=== PATIENT | female | born 1955 | race Caucasian/White ===

== ENCOUNTER 2020-12-25 18:28 | Emergency (ER) | payer MEDICARE, SELFPAY ==
--- NOTE | ~2020-12-25 | XR_ITS ---
EXAMINATION: XR HIP, RIGHT CLINICAL INFORMATION: Right hip pain after fall COMPARISON: None TECHNIQUE: Single view pelvis with 2 additional views of the right hip. FINDINGS: Some minimal degenerative changes present in the right hip joint with some supra-acetabular sclerosis and some osteophytes. No fractures are seen. There is a slightly irregular rounded area of sclerosis in the iliac bone just beneath the femoral head, most likely bone island. Degenerative changes are seen in the visualized portions of the lower lumbosacral spine. XR/XR hip RT w PEL1V IMPRESSION: No hip fracture seen
[2020-12-25 19:21] VITALS: BP 140/68; PULSE 83; RESP 18; TEMP 36.7; O2SAT 96; BMI 25.7
[2020-12-25 21:38] VITALS: BP 135/65; PULSE 78; RESP 16; TEMP 37.3; O2SAT 99
[2020-12-25 21:54] LABS: MANUAL DIFF FLAG NO
[2020-12-25 21:55] LABS: Basophils Percent Auto 0.3 % (0-2); Eosinophils Absolute Auto 0.2 X10*3/uL (0.0-0.4); Eosinophils Percent Auto 3.5 % (0-4); Hematocrit 35.2 % (37-47); Hemoglobin 11.5 g/dl (12.0-16.0); Imm Gran Abs Auto 0.01 X10*3/uL (0.00-0.03); Imm Gran Pct Auto 0.2 % (0.0-0.4); Lymphocytes Absolute Auto 1.4 X10*3/uL (1.2-4.9); Lymphocytes Percent Auto 21.9 % (20-40); Mean Corpuscular HGB Conc 32.7 g/dl (31.0-35.0); Mean Corpuscular Hemoglobin 30.2 pg (27.0-33.0); Mean Corpuscular Volume 92.4 fL (80-98); Mean Platelet Volume 12.1 fL (9.4-12.3); Monocytes Absolute Auto 0.6 X10*3/uL (0.1-1.2); Monocytes Percent Auto 9.2 % (2-11); Neutrophils Absolute Auto 4.3 X10*3/uL (2.0-8.3); Neutrophils Percent Auto 64.9 % (45-73); Platelet Count 180 X10*3/uL (160-400); Red Blood Count 3.81 X10*6/uL (4.20-5.50); Red Cell Distribution Width 15.7 % (11.0-16.0); White Blood Count 6.5 X10*3/uL (4.8-10.8)
[2020-12-25 22:00] LABS: INTERNATIONAL NORM RATIO 2.3 (0.9-1.1); Prothrombin Time 28.1 SEC (10.8-13.0)
[2020-12-25 22:03] LABS: Partial Thromboplastin Time 49.8 SEC (24.1-38.0)
[2020-12-25 22:14] LABS: Glucose Urine UA NEG (NEG); Leukocyte Esterase Urine TRACE (NEG); Nitrite Urine NEG (NEG); PH 5.5 (5.0-8.0); Specific Gravity - Urine 1.015 (1.005-1.025); UACC Culture Trigger YES; Urine Blood TRACE (NEG); Urine Ketones NEG (NEG); Urine Protein NEG (NEG-TRACE)
[2020-12-25 22:15] LABS: Appearance Urine CLEAR; Color Urine YELLOW
[2020-12-25 22:24] LABS: Anion Gap 16 (12-20); Blood Urea Nitrogen 48 mg/dL (9-16); Calcium 9.1 mg/dL (8.4-10.2); Carbon Dioxide 24 mmol/L (22-29); Chloride 103 mmol/L (96-108); Creatinine Clr Calc Pharmacy 54.5; Estimated Glomerular Filt Rate 59; Glucose Random 86 mg/dL (60-115); Potassium 4.1 mmol/L (3.3-5.1); Sodium 139 mmol/L (135-145)
[2020-12-25 22:27] LABS: Hyaline Casts Urine 0-2 /LPF; Mucus Urine TRACE /LPF; RBC Urine 0-2 /HPF (0); Squamous Epithelial Cell Urine TRACE /LPF
--- NOTE | 2020-12-26 00:20 | ED.FALL ---
HPI - Fall General Chief Complaint: Fall Stated Complaint: fall Time Seen by Provider: 12/26/20 00:19 Source: patient Mode of arrival: ambulatory Limitations: no limitations History of Present Illness HPI Narrative: Patient with hx of MS lost balance 2 days ago and fell landed on her right hip patient is on Coumadin no head injury no loss of consciousness patient been behaving normal the fall noticed small lump on the right lateral aspect of the hip ambulatory without any discomfort called her PCP was good to go to the ER for checkup MD complaint: fall Onset (ago): day(s) (2) Fall from: standing Fall witnessed: no Place fall occurred: home Loss of consciousness: none Location of injury - extremities: right: thigh Related Data Allergies Allergy/AdvReac Type Severity Reaction Status Date / Time No Known Allergies Allergy Verified 12/25/20 19:26 Review of Systems Review of Systems: Constitutional : No Weight loss, No Fever, No Chills ENT/Mouth : No sore throat, No Rhinorrhea Eyes: No Eye Pain, No Swelling Cardiovascular : No Chest Pain, no palpitations Respiratory : No Cough, No Sputum, no shortness of breath Gastrointestinal : no Nausea, No Vomiting, No Diarrhea, No abdominal Pain, no black stools Genitourinary : No Dysuria, No Urinary Frequency Musculoskeletal : No joint pain, No Myalgias, No Joint Swelling Skin : No Skin Lesions, No rash Neuro : No Weakness, No Numbness, No Dizziness, No Headache Psych : No Anxiety/Panic, No Depression Heme/Lymph: No Bruising, No Lymphadenopathy Endocrine : No Polyuria, No Polydipsia All other systems reviewed and are negative [facility] Past Medical History Medical History (Updated 12/26/20 @ 00:37 by Alexander Chen MD) HTN (hypertension) Multiple sclerosis Surgical History H/O heart surgery Social History Social History Advance Directives: No Physical Exam Vital Signs: Vital Signs: Last Vital Signs Temp 99.2 F 12/25/20 21:38 Pulse 78 12/25/20 21:38 Resp 16 12/25/20 21:38 BP 135/65 12/25/20 21:38 Pulse Ox 99 12/25/20 21:38 Body Mass Index 25.7 Const: General: comfortable, no acute distress and well developed Orientation/consciousness: patient oriented x3 HENMT: Head: Yes normocephalic and Yes atraumatic Ears: hearing grossly normal bilaterally General nose exam: Normal external nose present Eyes: General: appearance normal, both eyes and all related structures Neck: Neck: Yes normal visual inspection, Yes full ROM and No midline deformity Chest: Chest palpation & inspection: normal inspection of the chest Resp: Effort & Inspection: normal respiratory effort Auscultation: clear to auscultation bilaterally Cardio: Jugular venous distension: no JVD Rate: regular rate Rhythm: regular rhythm Heart sounds: S1 normal heart sound present and S2 normal heart sound present GI: Inspection: Yes normal to inspection Palpation (GI): Soft to palpation Auscultation: normal bowel sounds : General: Yes no CVA tenderness Back/Spine/Pelvis: Back: no CVA tenderness Cervical Spine: normal cervical lordosis Thoracic/Lumbar Spine: thoracic and lumbar spine normal to inspection Skin: Other: Small hematoma right lateral aspect of thigh Neuro: General: patient oriented x3 and no focal motor deficits Extrem: Upper/lower leg/hip images: 1. 4 x 4 cm hematoma right lateral aspect of the thigh without any bony tenderness MDM - Fall MDM Narrative Medical decision making narrative: Patient status post mechanical fall on Coumadin without any head injury no loss of consciousness patient been behaving normal for last 48 hours clinically patient has him small hematoma on the right lateral aspect of the hip x-ray of the hip is negative for any fracture patient been ambulatory normal in the ER will discharge patient home Lab Data Attestation: I reviewed the patient's lab results. Result diagrams: 12/25/20 21:45 12/25/20 21:45 Labs: Lab Results 12/25/20 12/25/20 12/25/20 Range/Units 21:45 21:45 21:45 WBC 6.5 (4.8-10.8) X10*3/uL RBC 3.81 L (4.20-5.50) X10*6/uL Hgb 11.5 L (12.0-16.0) g/dl Hct 35.2 L (37-47) % MCV 92.4 (80-98) fL MCH 30.2 (27.0-33.0) pg MCHC 32.7 (31.0-35.0) g/dl RDW 15.7 (11.0-16.0) % Plt Count 180 (160-400) X10*3/uL MPV 12.1 (9.4-12.3) fL Immature Gran % (Auto) 0.2 (0.0-0.4) % Neut % (Auto) 64.9 (45-73) % Lymph % (Auto) 21.9 (20-40) % [place] % (Auto) 9.2 (2-11) % Eos % (Auto) 3.5 (0-4) % Baso % (Auto) 0.3 (0-2) % Lymph # (Auto) 1.4 (1.2-4.9) X10*3/uL [place] # (Auto) 0.6 (0.1-1.2) X10*3/uL Eos # (Auto) 0.2 (0.0-0.4) X10*3/uL Baso # (Auto) 0.0 (0.0-0.2) X10*3/uL Abs Immat Gran (auto) 0.01 (0.00-0.03) X10*3/uL Absolute Neuts (auto) 4.3 (2.0-8.3) X10*3/uL Absolute Nucleated RBC 0.000 (0.0-0.012) X10*3/uL Nucleated RBC % (auto) 0.0 (0.0-0.2) /100WBC PT 28.1 H (10.8-13.0) SEC INR 2.3 H (0.9-1.1) APTT 49.8 H (24.1-38.0) SEC Sodium 139 (135-145) mmol/L Potassium 4.1 (3.3-5.1) mmol/L Chloride 103 (96-108) mmol/L Carbon Dioxide 24 (22-29) mmol/L Anion Gap 16 (12-20) BUN 48 H (9-16) mg/dL Creatinine 0.95 (0.5-1.4) mg/dL Estim Creat Clear Calc 54.5 Estimated GFR 59 Random Glucose 86 (60-115) mg/dL Calcium 9.1 (8.4-10.2) mg/dL Urine Color Urine Appearance Urine pH (5.0-8.0) Ur Specific [employer] [place] (1.005-1.025) Urine Protein (NEG-TRACE) MG/DL Urine Glucose (UA) (NEG) MG/DL Urine Ketones (NEG) MG/DL Urine Blood (NEG) Urine Nitrite (NEG) Ur Leukocyte Esterase (NEG) Urine RBC (0) /HPF Urine WBC (0-4) /HPF Ur Squamous Epith Cells /LPF Urine Bacteria /LPF Hyaline Casts /LPF Urine Mucus /LPF 12/25/20 Range/Units 21:53 WBC (4.8-10.8) X10*3/uL RBC (4.20-5.50) X10*6/uL Hgb (12.0-16.0) g/dl Hct (37-47) % MCV (80-98) fL MCH (27.0-33.0) pg MCHC (31.0-35.0) g/dl RDW (11.0-16.0) % Plt Count (160-400) X10*3/uL MPV (9.4-12.3) fL Immature Gran % (Auto) (0.0-0.4) % Neut % (Auto) (45-73) % Lymph % (Auto) (20-40) % [place] % (Auto) (2-11) % Eos % (Auto) (0-4) % Baso % (Auto) (0-2) % Lymph # (Auto) (1.2-4.9) X10*3/uL [place] # (Auto) (0.1-1.2) X10*3/uL Eos # (Auto) (0.0-0.4) X10*3/uL Baso # (Auto) (0.0-0.2) X10*3/uL Abs Immat Gran (auto) (0.00-0.03) X10*3/uL Absolute Neuts (auto) (2.0-8.3) X10*3/uL Absolute Nucleated RBC (0.0-0.012) X10*3/uL Nucleated RBC % (auto) (0.0-0.2) /100WBC PT (10.8-13.0) SEC INR (0.9-1.1) APTT (24.1-38.0) SEC Sodium (135-145) mmol/L Potassium (3.3-5.1) mmol/L Chloride (96-108) mmol/L Carbon Dioxide (22-29) mmol/L Anion Gap (12-20) BUN (9-16) mg/dL Creatinine (0.5-1.4) mg/dL Estim Creat Clear Calc Estimated GFR Random Glucose (60-115) mg/dL Calcium (8.4-10.2) mg/dL Urine Color YELLOW Urine Appearance CLEAR Urine pH 5.5 (5.0-8.0) Ur Specific [employer] [place] 1.015 (1.005-1.025) Urine Protein NEG (NEG-TRACE) MG/DL Urine Glucose (UA) NEG (NEG) MG/DL Urine Ketones NEG (NEG) MG/DL Urine Blood TRACE (NEG) Urine Nitrite NEG (NEG) Ur Leukocyte Esterase TRACE H (NEG) Urine RBC 0-2 (0) /HPF Urine WBC 1-4 (0-4) /HPF Ur Squamous Epith Cells TRACE /LPF Urine Bacteria NONE /LPF Hyaline Casts 0-2 /LPF Urine Mucus TRACE /LPF Discharge Plan Discharge Clinical Impression: Contusion of hip, right Qualifiers: Encounter type: initial encounter Qualified Code(s): S70.01XA - Contusion of right hip, initial encounter Patient Disposition: Home, Self-Care Instructions: Hip Contusion (ED) Additional Instructions: Apply ice, Tylenol for pain follow with PCP if any concern Interventions: ED Discharge Assessment Last Done: 12/26/20 00:42 Discharge Date/Time: 12/26/20 00:43
== END 2020-12-26 00:43 | disposition home or self-care (01) ==
PROVIDERS: Emergency Provider Internal Medicine; PCP Nurse Practitioner Adult Health
DX: S70.01XA Contusion of right hip, initial encounter (principal); W18.30XA Fall on same level, unspecified, initial encounter; I10 Essential (primary) hypertension; G35 Multiple sclerosis; Y93.9 Activity, unspecified; Y92.019 Unspecified place in single-family (private) house as the place of occurrence of the external cause; Y99.9 Unspecified external cause status
CPT/HCPCS: 36415; 73502; 80048; 81001; 81003; 85025; 85610; 85730; 87086; 99283

== ENCOUNTER 2025-06-02 06:43 | Observation (INO) | payer MEDICARE, SELFPAY ==
[2025-06-02] VITALS (9 sets, daily range): BP systolic 134–162; BP diastolic 63–88; PULSE 78–105; RESP 16–21; TEMP 36.1–36.9; O2SAT 95–98; BMI 39.0; BMI 37.7
--- NOTE | ~2025-06-02 | CT_ITS ---
EXAMINATION: CT CHEST WITH CONTRAST CLINICAL INFORMATION: Further evaluation of pleural effusions, dyspnea. COMPARISON: Chest radiograph dated same day. No prior CT. TECHNIQUE: Multidetector volumetric CT imaging of the chest was obtained after the administration of 50 mL of Omnipaque 350 intravenous contrast without immediate adverse reactions. Axial MIP volume rendering provided. Sagittal and coronal reformatted images were obtained. This CT examination was performed using dose optimization techniques as appropriate, variously including the following: *Automated exposure control *Adjustment of mA and/or kV according to patient size (this includes techniques or standardized protocols for targeted exams where dose is matched to indication/reason for exam; i.e. extremities or head) *Use of iterative reconstruction technique FINDINGS: LUNGS: Markedly elevated right hemidiaphragm, to the level of the right hilum. Associated chronic right basilar atelectasis. There are no pleural effusions present. There is no pneumothorax. Minor atelectasis in the left base. Lungs otherwise clear and free of consolidations or abnormal groundglass opacities. No suspicious nodules. Small airways appear normal without significant thickening. The trachea has a somewhat narrowed appearance, as do the mainstem bronchi, raising the possibility of tracheobronchomalacia. MEDIASTINUM: Normal thyroid. There has been prior median sternotomy and CABG. Aortic valve replacement. Aorta is moderately calcified but normal in caliber without aneurysm. The main pulmonary artery is prominent suggesting elevated pulmonary pressures. Diameter measures 3.2 cm. There is mild cardiac enlargement with four-chamber enlargement. There is calcification of the mitral annulus. No pericardial effusion. There are heavy coronary calcifications present. There is no mediastinal adenopathy or mass. Great vessels are tortuous, and moderately calcified but grossly patent. AXILLA/CHEST WALL: No abnormal lymphadenopathy or mass. UPPER ABDOMEN: There is diffuse fatty infiltration of the liver. There is no focal hepatic lesion. Mild scarring of both kidneys noted. Density within the dependent gallbladder likely small stones. Remainder of the upper abdominal contents appear normal. OSSEOUS STRUCTURES: No suspicious lytic or blastic bone lesions. Chronic compression deformity of T12. Median sternotomy. Moderate degenerative spinal changes. CT/CT chest w IV con IMPRESSION: 1. Marked elevation of the right hemidiaphragm with chronic appearing atelectasis of the right lung base. 2. There are no pleural effusions. The lungs are otherwise grossly clear. There is no overt failure or pulmonary edema present. 3. Cardiomegaly with aortic valve replacement. Probable prior CABG as well. Heavy coronary artery calcifications. 4. The trachea has a somewhat narrowed appearance, as do the mainstem bronchi, raising the possibility of tracheobronchomalacia. 5. Suspect cholelithiasis. 6. Diffuse fatty infiltration of the liver. 7. Chronic compression deformity of T12. Electronically signed by: Alban Teran MD 06/02/2025 09:26 AM EDT
--- NOTE | ~2025-06-02 | XR_ITS ---
EXAMINATION: XR CHEST CLINICAL INFORMATION: sob COMPARISON: None available. TECHNIQUE: 2 views of the chest were obtained. FINDINGS: There is a horizontally oriented opacity mid to lower right hemithorax. Blunting of the left posterior angle. No pneumothorax. Vertically oriented linear opacity right hemithorax, likely skinfold. Positive silhouette sign in the inferior right cardiomediastinal silhouette. Cardiomediastinal silhouette size is prominent. Sternal wires. Mild prominence of the interstitial lung markings. Kyphotic deformity at the thoracolumbar junction with a 50% wedge-shaped compression deformity at T12/L1. Multilevel marginal osteophyte formation and endplate sclerosis involving mostly the upper lumbar spine and lower thoracic spine. Osteopenia versus osteoporosis. XR/XR chest 2V IMPRESSION: Concerning pulmonary edema and bilateral, right greater than left pleural effusions. Concerning airspace disease, right middle lung lobe with possible atelectatic component. Recommend CT chest. Subacute to old compression fracture deformity at T12/L1 vertebra. Electronically signed by: Huy Mora MD 06/02/2025 08:26 AM EDT
--- NOTE | 2025-06-02 07:11 | ECG_ITS ---
Test Reason : dyspnea Blood Pressure : */* mmHG Vent. Rate : 76 BPM Atrial Rate : 76 BPM P-R Int : 142 ms QRS Dur : 92 ms QT Int : 392 ms P-R-T Axes : 49 -16 33 degrees QTcB Int : 441 ms Normal sinus rhythm Moderate voltage criteria for LVH, may be normal variant ( R in aVL , Howes product ) Nonspecific ST abnormality Abnormal ECG No previous ECGs available Referred By: Generic ED Physician Electronically Signed By: SAGAR WORKMAN MD
--- OUTSIDE RECORDS SUMMARY | 2025-06-02 07:35 | XMS_ITS | Encounter Summary ---
Author Organization [facility] Address [address] [place] [address] Phone Care Team Providers Care Poultry Hatchery Manager Name Role Phone Daniel Fuentes MD Primary Care Provider [phone] Encounter Details Date Type Department Care Team (Latest Contact Info) Description 09/11/2021 Ancillary Orders [facility] [address] [place] [address] [address], [address] [place] [address] Aminta Gordon MD [phone] [place] [address] [email or web address] Atrial fibrillation, unspecified type Social History Tobacco Use Types Packs/Day Years Used Date Smoking Tobacco: Never Assessed Comments Unknown Sex and Gender Information Value Date Recorded Sex Assigned at Not on file Legal Sex Female 3:33 PM EDT Gender Identity Not on file Sexual Orientation Not on file documented as of this encounter Plan of Treatment Scheduled Orders Name Type Priority Associated Diagnoses Orde r Schedule MCT (Mobile Cardiac Telemetry) Cardiac Monitors Routine Atrial fibrillation, unspecified type Expected: 09/30/2021, Expires: 02/28/2022 documented as of this encounter Visit Diagnoses Diagnosis Atrial fibrillation, unspecified type documented in this encounter Care Teams Poultry Hatchery Manager Relationship Specialty Start Date End Date Daniel Fuentes MD [address] [place] [address] PCP - General Internal Medicine 08/30/21 documented as of this encounter Additional Source Comments The information contained in this document represents components of the legal health record. It is not the complete legal health record.[facility]
--- OUTSIDE RECORDS SUMMARY | 2025-06-02 07:35 | XMS_ITS | Clinical Summary ---
Author Organization [facility] Address [address] [place] [address] Care Team Providers Care Chief Drafter Name Role Phone Iris Wharton NP Primary Care Provider [phone] Medical History Medical History Date Comments Multiple sclerosis (CMS/HCC V24, CMS/HCC V28) DX:Multiple sclerosis (HCC) Heart murmur 07/29/2022 DX:Heart murmur Social History Tobacco Use Types Packs/Day Years Used Date Smoking Tobacco: Former Smokeless Tobacco: Never Comments Unknown Sex and Gender Information Value Date Recorded Sex Assigned at Not on file Legal Sex Female 5:15 AM EST Gender Identity Not on file Sexual Orientation Not on file Obstetrics History Last Filed Vital Signs Vital Sign Reading Time Taken Comments Blood Pressure 158/80 11/11/2023 10:41 AM EST Pulse 92 11/11/2023 10:41 AM EST Temperature - - Respiratory Rate - - Oxygen Saturation - - Inhaled Oxygen Concentration - - Weight 86.6 kg (191 lb) 11/11/2023 10:36 AM EST Height 162.6 cm (5' 4 ) 11/11/2023 10:36 AM EST Body Mass Index 32.79 11/11/2023 10:36 AM EST Plan of Treatment Health Maintenance Due Date Last Done Comments Breast Cancer Screening 1955 Diabetes: Annual GFR (Glomer ular Filtration Rate) 1955 Diabetes: Annual Foot Exam 01/15/1966 Diabetes: Annual Retina Eye Exam 01/15/1966 DTaP,Tdap,and Td Vaccines (1 - Tdap) 01/15/1975 Pneumococcal Vaccine: 50+ Ye ars (1 of 1 - PCV) 01/15/2006 Zoster Vaccines (1 of 2) 01/15/2006 RSV Immunization Adult Patie nts (1 - Risk 60-74 years 1-dose series) 2016 Cholesterol Screening (Lipid Panel) 10/13/2022 Colorectal Cancer Screening: Colonoscopy 10/13/2022 Falls Risk Assessment 10/13/2022 Hepatitis C Screening 10/13/2022 Osteoporosis Screening (Bone Density Screening) 10/13/2022 Social Influencers of Health Screening 10/13/2022 Diabetes: Annual Urine Albumin-Creatinine Ratio (uACR) 11/01/2022 Diabetes: Blood Sugar Contro l Test (HGBA1C) 11/01/2022 Hypertension/CHF/CAD Annual BMP Blood Test 11/01/2022 COVID-19 Vaccine (2023-2 5 season) 2024 Depression Screening 11/03/2024 Influenza Vaccine (#1) 2025 HIB Vaccines Aged Out No longer eligi ble based on patient's age to complete this topic HPV Vaccines Aged Out No longer eligi ble based on patient's age to complete this topic Hepatitis A Vaccines Aged Out No long er eligible based on patient's age to complete this topic Hepatitis B Vaccines Aged Out No long er eligible based on patient's age to complete this topic IPV Vaccines Aged Out No longer eligi ble based on patient's age to complete this topic MMR Vaccines Aged Out No longer eligi ble based on patient's age to complete this topic Meningococcal ACWY Vaccine Aged Out N o longer eligible based on patient's age to complete this topic Meningococcal B Vaccine Aged Out No l onger eligible based on patient's age to complete this topic RSV Immunization Patients Un lisy 20 months Aged Out No longer eligible b ased on patient's age to complete this topic Varicella Vaccines Aged Out No longer eligible based on patient's age to complete this topic Care Teams Chief Drafter Relationship Specialty Start Date End Date Iris Wharton, ARMHOLE PRESSER [address] [place] [address] VIVEK Collins PCP - General 04/22/22
--- OUTSIDE RECORDS SUMMARY | 2025-06-02 07:35 | XMS_ITS | Clinical Summary ---
Author Organization [facility] Address [address] [place] [address] Care Team Providers Care Pocket Setter Name Role Phone Daniel Fuentes MD Primary Care Provider [phone] Allergies No known active allergies Medications Medication Sig Dispensed Refills Start Date End Date Status furosemide (LASIX) 20 MG tablet TAKE ONE TABLET BY MOUTH EVERY DAY 0 01/20/2020 Active lisinopril (PRINIVIL,ZESTRIL) tablet 5 mg Take 5 mg by mouth daily. 0 01/26/2020 Active metFORMIN (GLUCOPHAGE-XR) ER 24 hr tablet 500 mg TAKE 1 TABLET WITH EVENING MEAL ONCE DAILY 0 01/28/2020 Active ferrous sulfate 325 (65 FE) MG tablet Take 325 mg by mouth every morning with breakfast. 0 Active Active Problems Problem Noted Date Diagnosed Date DM (diabetes mellitus) 04/11/2020 CHF (congestive heart failure) 04/11/2020 Family History Medical History Relation Name Comments Hypertension Father Hypertension Mother Relation Name Status Comments Father Mother Social History Tobacco Use Types Packs/Day Years Used Date Smoking Tobacco: Former Smokeless Tobacco: Never Alcohol Use Standard Drinks/Week Comments Yes 0 (1 standard drink = 0.6 oz pur e alcohol) Sex and Gender Information Value Date Recorded Sex Assigned at Not on file Gender Identity Not on file Sexual Orientation Not on file Job Start Date Occupation Industry Not on file Not on file Not on file Plan of Treatment Health Maintenance Due Date Last Done Comments Hepatitis C Screening 1955 COVID-19 Vaccine (#1) 1955 Pneumococcal Vaccine (1 of 2 - PCV) 01/15/1962 Depression Screening 1968 Preventative Health Evaluation 01/15/1974 DTap / Tdap / Td (1 - Tdap) 01/15/1975 Colon Cancer Screening (Colonoscopy) 01/15/2001 Breast Cancer Screening (Mammogram) 01/15/2006 Shingrix-Zoster Vaccine (1 of 2) 01/15/2006 Fall Risk Assessment 01/15/2021 Osteoporosis Screening (DEXA Scan) 01/15/2021 Influenza Vaccine (#1) 2025 RSV Adult > 60+ Yrs or Pregn ant (1 - 1-dose 75+ series) 01/15/2031 Hepatitis B Vaccines Aged Out No long er eligible based on patient's age to complete this topic RSV Ped < 20 months Aged Out No longe r eligible based on patient's age to complete this topic Care Teams Pocket Setter Relationship Specialty Start Date End Date Daniel Fuentes MD PCP - General Internal Medicine 04/11/20
[2025-06-02 08:02] LABS: MANUAL DIFF FLAG NO
[2025-06-02 08:03] LABS: Hematocrit 38.0 % (37.0-47.0); Hemoglobin 12.8 g/dl (12.0-16.0); Imm Gran Abs Auto 0.04 X10*3/uL (0.00-0.03); Imm Gran Pct Auto 0.5 % (0.0-0.4); Lymphocytes Absolute Auto 0.8 X10*3/uL (1.2-4.9); Mean Corpuscular HGB Conc 33.7 g/dl (31.0-35.0); Mean Corpuscular Hemoglobin 32.0 pg (27.0-33.0); Mean Corpuscular Volume 95.0 fL (80.0-98.0); NRBC Abs Auto 0.000 X10*3/uL (0.0-0.012); NRBC Pct Auto 0.0 /100WBC (0.0-0.2); Platelet Count 190 X10*3/uL (160-400); Red Blood Count 4.00 X10*6/uL (4.20-5.50); White Blood Count 8.0 X10*3/uL (4.8-10.8)
[2025-06-02 08:04] LABS: Venous Blood Gas Refer to POC result
[2025-06-02 08:05] LABS: VBG HCO3 25 mmol/L (22-26); VBG O2 % Saturation 74.0 %
--- NOTE | 2025-06-02 08:14 | ED_ITS ---
HPI - General Adult General Chief complaint: Dyspnea Stated complaint: on set SOB Time Seen by Provider: 06/02/25 08:10 Source: patient, family (patient's son) and EMS Mode of arrival: EMS Limitations: no limitations History of Present Illness ED Provider: Marixa Justice PA-C HPI narrative: Patient is a 70 year old assigned female at with a history of asthma, CABG, CAD, peripheral neuropathy, GERD, HTN, HLD, aortic valve replacement (on warfarin), SHALONDA, DM, and CHF presenting to the emergency department today with shortness of breath. Patient states that since 0 this morning she has had shortness of breath. Patient states that she is having worsening shortness of breath no matter what position or exertion she is doing. Patient denies any dizziness, lightheadedness, abdominal pain, nausea, vomiting, fever, chills, blurry vision, double vision, loss of vision, chest pain, back pain, night sweats, pain with urination, increased urinary frequency, increased urinary urgency, blood in her urine or stool, syncope or a near syncopal episode, recent trauma or falls, bowel incontinence, bladder incontinence, or any other complaints at this time. Relieving factors: none Exacerbating factors: none Associated symptoms: shortness of breath Treatments prior to arrival: none Related Data Home Medications ?Medication ?Instructions ?Recorded ?Confirmed amlodipine 5 mg tablet 5 mg PO DAILY 06/02/2506/02 aspirin 81 mg tablet,delayed 81 mg PO DAILY 06/02/25 0 06/02/25 release furosemide 20 mg tablet 20 mg PO DAILY 06/02/2505/05 lisinopril 10 mg tablet 10 mg PO DAILY 06/02/2505/05 warfarin 2 mg tablet (Jantoven) 4.5 mg PO MO@1800 05/0506/02/25 warfarin 4 mg tablet (Jantoven) 4 mg PO SUTUWETHFRSA@1 800 06/02/25 06/02/25 Allergies Allergy/AdvReac Type Severity Reaction Status Date / Time No Known Allergies Allergy Verified 06/02/25 07:07 Review of Systems 2 Constitutional: Constitutional: Reports no additional constitutional complaints, Denies chills, Denies fever(s) and Denies night sweats Eyes: Eyes: Reports no additional eye complaints, Denies blurry vision, Denies change in vision, Denies diplopia, Denies eye discharge, Denies loss of vision and Denies eye pain ENT: Denies dizziness Cardiovascular: Cardiovascular: Reports no additional cardiovascular complaints, Denies chest pain, Denies lightheadedness, Denies Loss of Consciousness and Reports dyspnea Respiratory: Respiratory: Reports no additional respiratory complaints and Reports dyspnea Gastrointestinal: Gastrointestinal: Reports no additional gastrointestinal complaints, Denies abdominal pain, Denies melena, Denies hematochezia, Denies change in bowel habits and Denies change in stool character Genitourinary: Genitourinary: Denies hematuria, Denies urinary frequency, Denies dysuria, Denies urinary incontinence, Denies urinary hesitancy and Denies urinary urgency Musculoskeletal: Musculoskeletal: Reports no additional musculoskeletal complaints, Denies numbness and Denies tingling Neurologic: Denies dizziness, Denies loss of vision, Denies numbness and Denies tingling Psychiatric: Psychiatric: Reports no additional psychiatric complaints Endocrine: Endocrine: Reports no additional endocrine complaints Hematologic/Lymphatic: Hematologic/Lymphatic: Reports no additional hematologic/lymphatic complaints Allergic/Immunologic: Allergic/Immunologic: Reports no additional allergic/immunologic complaints [facility] Past Medical History Attestation statement: The following information was validated with the patient. (all information validated with the patient's son) Source: old records reviewed, obtained from family (patient's son provided additional history and confirmed the history provided by the patient. ) and nursing notes reviewed Medical History Multiple sclerosis HTN (hypertension) Surgical History H/O heart surgery Social History Social History Alcohol intake: current Smoked in Last 30 Days: No Use of substances other than those prescribed or required for medical reasons: No Advance Directives: No Advance Directives Information Provided: Yes Physical Exam ED Vital Signs: Vital Signs - 24 hr 06/02/25 07:05 06/02/25 09:24 06/02/25 10:28 Temperature 97.4 F 98.0 F Pulse Rate 78 82 94 Respiratory Rate 18 21 H 16 Blood Pressure 149/64 H 134/68 Pulse Oximetry 96 95 Oxygen Delivery Method Room Air Room Air BMI result Body Mass Index 39.0 Const General: cooperative, no acute distress, alert and awake Nutritional Appearance: well nourished Orientation/consciousness: patient oriented x3 HENMT Head: Yes normal to inspection and Yes atraumatic Ears: hearing grossly normal bilaterally and external ears normal General nose exam: Normal external nose present, no nasal discharge noted and no epistaxis Face and sinus: Yes normal facial exam, No abrasion and No laceration Mouth: Normal oral and palatal mucosa present, no drooling and no muffled voice Eyes General: appearance normal, both eyes and all related structures Periorbital: periorbital findings normal Eyelids: Yes eyelids normal Conjunctivae: conjunctivae normal Pupils: Equal, round and reactive pupils present EOM: EOMs intact bilaterally Neck Neck: Yes normal visual inspection, Yes full ROM and Yes no lymphadenopathy Resp Effort & Inspection: able to speak in complete sentences and labored Auscultation: wheezes scattered wheezes Neuro General: patient oriented x3, moves all extremities and CN's II-XI intact bilaterally Cranial nerves: Yes Equal, round and reactive pupils present Cognition (Neuro): normal cognition Extrem General: Yes normal to inspection, Yes full ROM and Yes capillary refill normal Psych Appearance: grossly normal Mental Status: mental status grossly normal Affect: normal affect Attitude: cooperative Thought process: Normal thought process present Thought content: Normal thought content present Insight: Good insight present (Psych) Medications Administered Discontinued Medications Generic Name Dose Route Start Last Admin Trade Name Freq PRN Reason Stop Dose Admin Albuterol Sulfate 2.5 mg/ 0 mg 06/02/25 09:21 06/02/25 09:22 Albuterol/Ipratropium 3 ml INHALE 06/02/25 09:22 1 dose ONCE ONE Administration Magnesium Sulfate/Dextrose 1 gm in 100 mls @ 100 mls/hr 06/02/25 08:33 06/02/25 09:44 Magnesium Sulfate/D5w IV 06/02/25 09:32 Infused ONCE ONE Infusion Iohexol 100 ml 06/02/25 08:56 06/02/25 08:57 Iohexol 350 Mg/Ml 100 Ml Infus..Btl IV 06/02/25 08:57 65 ml ONCE ONE Administration Methylprednisolone Sodium Succinate 60 mg 06/02/25 08:33 06/02/25 08:45 Methylprednisolone Sod Succ 125 Mg/2 Ml Vial IVPUSH 06/02/25 08:34 60 mg ONCE ONE Administration Medical Decision Making Medical Decision Making [facility] Narrative: Patient is a 70 year old assigned female at with a history of asthma, CABG, CAD, peripheral neuropathy, GERD, HTN, HLD, aortic valve replacement (on warfarin), SHALONDA, DM, and CHF presenting to the emergency department today with shortness of breath. Patient's physical exam showed diffuse wheezes with mild labored breathing. Patient's blood work showed a very mildly elevated BNP of 143 but otherwise unremarkable - therapeutic INR. Patient's EKG was unremarkable. Patient's chest x-ray showed evidence of pulmonary edema and bilateral right greater than left effusions as well as concerning right middle lung lobe airspace disease for which the radiologist recommended a CT scan. CT scan of the chest showed marked elevation of the right hemidiaphragm that is chronic for the patient with no pleural effusions, cardiomegaly with aortic valve replacement + evidence of CABG, and some mild tracheal narrowing suggesting tracheobronchomalacia. Patient's clinical presentation is most consistent with an acute asthma exacerbation and NOT sepsis (@1034). I spoke with the hospitalist team who agreed to admission. I explained my physical exam findings as well as all test results to the patient and the patient's son. I answered all questions asked by the patient and the patient's son. Patient received IV magnesium, Solu-medrol, and breathing treatmetns which, upon re-evaluation, she stated it helped her symptoms some but she continued to feel short of breath. Patient and the patient's son verbalized agreement and understanding with this treatment plan and admission. Differential Diagnosis Differential Diagnoses: The differential diagnosis associated with the presentation includes Asthma exacerbation SOB CHF Admission/Observation Consideration of admission/observation: Escalation of care including admission/observation considered Patient admitted as noted in the MDM Rationale portion of this note. Consult Healthcare Provider Management of the patient was discussed with: Hospitalist (agreed to admission as noted in the MDM Rationale portion of this note. ) Lab Data [facility] Lab Attestation statement: I reviewed the patient's lab results. My interpretation of these results are in the MDM Rationale portion of this note. 06/02/25 07:56 06/02/25 07:56 Labs: Lab Results 06/02/25 06/02/25 06/02/25 Range/Units 07:56 08:01 08:44 WBC 8.0 (4.8-10.8) X10*3/uL RBC 4.00 L (4.20-5.50) X10*6/uL Hgb 12.8 (12.0-16.0) g/dl Hct 38.0 (37.0-47.0) % MCV 95.0 (80.0-98.0) fL MCH 32.0 (27.0-33.0) pg MCHC 33.7 (31.0-35.0) g/dl RDW 15.4 (11.0-16.0) % Plt Count 190 (160-400) X10*3/uL MPV 11.6 (9.4-12.3) fL Immature Gran % (Auto) 0.5 H (0.0-0.4) % Neut % (Auto) 80.6 H (45-73) % Lymph % (Auto) 9.5 L (20-40) % Stanton % (Auto) 7.1 (2-11) % Eos % (Auto) 1.8 (0-4) % Baso % (Auto) 0.5 (0-2) % Lymph # (Auto) 0.8 L (1.2-4.9) X10*3/uL Stanton # (Auto) 0.6 (0.1-1.2) X10*3/uL Eos # (Auto) 0.1 (0.0-0.4) X10*3/uL Baso # (Auto) 0.0 (0.0-0.2) X10*3/uL Abs Immat Gran (auto) 0.04 H (0.00-0.03) X10*3/uL Absolute Neuts (auto) 6.4 (2.0-8.3) x10*3/uL Absolute Nucleated RBC 0.000 (0.0-0.012) X10*3/uL Nucleated RBC % (auto) 0.0 (0.0-0.2) /100WBC PT 30.6 H (10.9-12.4) SEC INR 2.7 H (0.9-1.1) VBG pH 7.43 (7.32-7.43) VBG pCO2 37 mmHg VBG pO2 43 mmHg VBG HCO3 25 (22-26) mmol/L VBG O2 Saturation 74.0 % VBG Base Excess 1.5 mmol/L Sodium 143 (135-145) mmol/L Potassium 4.6 (3.3-5.1) mmol/L Chloride 111 H (96-108) mmol/L Carbon Dioxide 24 (22-29) mmol/L Anion Gap 13 (12-20) BUN 24 H (9-16) mg/dL Creatinine 0.95 (0.5-1.4) mg/dL Estim Creat Clear Calc 65.3 Estimated GFR 58 Random Glucose 127 H (60-115) mg/dL Calcium 8.7 (8.4-10.2) mg/dL Magnesium 2.1 (1.6-2.6) mg/dL Total Bilirubin 0.3 (0.0-1.0) mg/dL AST 28 (5-31) U/L ALT 17 (0-31) U/L Alkaline Phosphatase 94 (39-117) U/L Troponin I High Sens 11.6 (<3.5-17.0) ng/L B-Natriuretic Peptide 143 H (<100) pg/mL Total Protein 6.3 L (6.5-8.0) g/dL Albumin 3.8 (3.5-5.0) g/dL Influenza Type A (PCR) NEGATIVE (Negative) Influenza Type B (PCR) NEGATIVE (Negative) RSV RNA Qual (PCR) NEGATIVE (Negative) SARS-CoV-2 RNA (RT-PCR) NEGATIVE (Negative) Independent Interpretation I performed an independent interpretation of an: EKG, Plain X-Ray and CT Scan Interpretation: My interpretation is in agreement with the radiologist's impression of these imaging studies. L Report Number: [id number]: Total DLP = 467.00 mGy-cm EXAMINATION: CT CHEST WITH CONTRAST CLINICAL INFORMATION: Further evaluation of pleural effusions, dyspnea. COMPARISON: Chest radiograph dated same day. No prior CT. TECHNIQUE: Multidetector volumetric CT imaging of the chest was obtained after the administration of 50 mL of Omnipaque 350 intravenous contrast without immediate adverse reactions. Axial MIP volume rendering provided. Sagittal and coronal reformatted images were obtained. This CT examination was performed using dose optimization techniques as appropriate, variously including the following: *Automated exposure control *Adjustment of mA and/or kV according to patient size (this includes techniques or standardized protocols for targeted exams where dose is matched to indication/reason for exam; i.e. extremities or head) *Use of iterative reconstruction technique FINDINGS: LUNGS: Markedly elevated right hemidiaphragm, to the level of the right hilum. Associated chronic right basilar atelectasis. There are no pleural effusions present. There is no pneumothorax. Minor atelectasis in the left base. Lungs otherwise clear and free of consolidations or abnormal groundglass opacities. No suspicious nodules. Small airways appear normal without significant thickening. The trachea has a somewhat narrowed appearance, as do the mainstem bronchi, raising the possibility of tracheobronchomalacia. MEDIASTINUM: Normal thyroid. There has been prior median sternotomy and CABG. Aortic valve replacement. Aorta is moderately calcified but normal in caliber without aneurysm. The main pulmonary artery is prominent suggesting elevated pulmonary pressures. Diameter measures 3.2 cm. There is mild cardiac enlargement with four-chamber enlargement. There is calcification of the mitral annulus. No pericardial effusion. There are heavy coronary calcifications present. There is no mediastinal adenopathy or mass. Great vessels are tortuous, and moderately calcified but grossly patent. AXILLA/CHEST WALL: No abnormal lymphadenopathy or mass. UPPER ABDOMEN: There is diffuse fatty infiltration of the liver. There is no focal hepatic lesion. Mild scarring of both kidneys noted. Density within the dependent gallbladder likely small stones. Remainder of the upper abdominal contents appear normal. OSSEOUS STRUCTURES: No suspicious lytic or blastic bone lesions. Chronic compression deformity of T12. Median sternotomy. Moderate degenerative spinal changes. CT/CT chest w IV con IMPRESSION: 1. Marked elevation of the right hemidiaphragm with chronic appearing atelectasis of the right lung base. 2. There are no pleural effusions. The lungs are otherwise grossly clear. There is no overt failure or pulmonary edema present. 3. Cardiomegaly with aortic valve replacement. Probable prior CABG as well. Heavy coronary artery calcifications. 4. The trachea has a somewhat narrowed appearance, as do the mainstem bronchi, raising the possibility of tracheobronchomalacia. 5. Suspect cholelithiasis. 6. Diffuse fatty infiltration of the liver. 7. Chronic compression deformity of T12. Electronically signed by: Alban Teran MD 06/02/2025 09:26 AM EDT Dictated By: Alban Teran MD Signed By: Electronically signed by Alban Teran MD 06/02/25 0926 EXAMINATION: XR CHEST CLINICAL INFORMATION: sob COMPARISON: None available. TECHNIQUE: 2 views of the chest were obtained. FINDINGS: There is a horizontally oriented opacity mid to lower right hemithorax. Blunting of the left posterior angle. No pneumothorax. Vertically oriented linear opacity right hemithorax, likely skinfold. Positive silhouette sign in the inferior right cardiomediastinal silhouette. Cardiomediastinal silhouette size is prominent. Sternal wires. Mild prominence of the interstitial lung markings. Kyphotic deformity at the thoracolumbar junction with a 50% wedge-shaped compression deformity at T12/L1. Multilevel marginal osteophyte formation and endplate sclerosis involving mostly the upper lumbar spine and lower thoracic spine. Osteopenia versus osteoporosis. XR/XR chest 2V IMPRESSION: Concerning pulmonary edema and bilateral, right greater than left pleural effusions. Concerning airspace disease, right middle lung lobe with possible atelectatic component. Recommend CT chest. Subacute to old compression fracture deformity at T12/L1 vertebra. Electronically signed by: Huy Mora MD 06/02/2025 08:26 AM EDT Dictated By: Huy Fuentes MD Signed By: Electronically signed by Huy Owen MD 06/02/25 0826 I independently interpreted this EKG and am in agreement with the below findings: Vent. Rate: 76 BPM Atrial Rate: 76 BPM P-R Int: 142 ms QRS Dur: 92 ms QT Int: 392 ms P-R-T Axes: 49 -16 33 degrees QTcB Int: 441 ms Normal sinus rhythm Moderate voltage criteria for LVH, may be normal variant (R in aVL , [employer]) Nonspecific ST abnormality No previous ECGs available Electronically Signed By: GURWINDER WORKMAN MD Dictated By: Gurwinder Workman MD Signed By: Electronically signed by Gurwinder Workman MD 06/02/25 0954 Radiology Impression Discussion of test interpretation with radiology: I have reviewed the radiologist's reading. Independent Historian Clinical information obtained from an independent historian. History obtained from or confirmed by: EMS (EMS provided additional history and confirmed the history provided by the patient. ) and Other (Patient's son provided additional history and confirmed the history provided by the patient. ) Critical Care Time Critical Care Time Critical Care Time: Yes Total Critical Care Time: 39 Attestation: I spent 39 minutes of Critical Care Time with this patient. This does not include time spent on separately reported billable procedures. Discharge Plan Discharge Clinical Impression: Asthma with exacerbation Patient Disposition: Admitted As Inpatient
[2025-06-02 08:17] LABS: Alanine Aminotransferase 17 U/L (0-31); Albumin Level 3.8 g/dL (3.5-5.0); Alkaline Phosphatase 94 U/L (39-117); Anion Gap 13 (12-20); Aspartate Amino Transferase 28 U/L (5-31); Blood Urea Nitrogen 24 mg/dL (9-16); Calcium 8.7 mg/dL (8.4-10.2); Carbon Dioxide 24 mmol/L (22-29); Chloride 111 mmol/L (96-108); Creatinine Clr Calc Pharmacy 65.3; Estimated Glomerular Filt Rate 58; Magnesium 2.1 mg/dL (1.6-2.6); Potassium 4.6 mmol/L (3.3-5.1); Sodium 143 mmol/L (135-145); Total Protein 6.3 g/dL (6.5-8.0)
--- NOTE | 2025-06-02 08:21 | PC.NURSE ---
pt comes to ED with reports of since 0400 this morning. she also reports a cough. she denies COPD hx or any home breathing treatments. Reports she takes lasix at home that her tool setter apprentice started her on. does not know why she takes it. Lung sounds exp wheezing throughout. Spo2 in high 90s, RR rate and IA normal. no pitting edema in lower extremities. no chest pain.
[2025-06-02 08:51] LABS: Resp Syncy Virus RNA Qual PCR NEGATIVE (Negative); SARS COV2 PCR INHOUSE NEGATIVE (Negative)
[2025-06-02] MEDS: iohexoL 350 MG/ML 100 ML INFUS..BTL IV (08:57)
[2025-06-02 09:10] LABS: INTERNATIONAL NORM RATIO 2.7 (0.9-1.1); Prothrombin Time 30.6 SEC (10.9-12.4)
[2025-06-02 09:19] LABS: B Type Natriuretic Peptide 143 pg/mL (<100)
[2025-06-02] MEDS: Albuterol Sulfate 2.5 MG, Albuterol/Iprat 2.5/0.5MG 3 ML 3 ML INHALE (09:22)
[2025-06-02 10:18] LABS: Troponin-I High Sensitivity 11.6 ng/L (<3.5-17.0)
--- NOTE | 2025-06-02 11:16 | PM.IMHP ---
History of Present Illness Date of Service: 06/02/25 Attending physician on admission: Med Noguera Chief Complaint: Shortness of breaths This is a 70-year-old female with history of asthma, MS who presents to the emergency department with shortness of breath. She was in her usual state of health until around 05:00 this morning when she reported onset of shortness of breath and associated cough productive of clear phlegm. She denies any associated fever or chills. She denies any recent sick contacts although she does care for her 8-year-old grandson. In the emergency department she had a CAT scan of the chest which was remarkable for chronic changes there was no overt failure or pulmonary edema and lungs were grossly clear. The trachea was somewhat narrowed raising possibility of tracheobronchomalacia. Patient was treated with IV steroids and breathing treatments and due to persistent dyspnea the decision was made to admit her to the hospital for further treatment. In general patient reports that her asthma is fairly well controlled and has never been hospitalized for the same. She denies any dysphagia, choking episodes or difficulty swallowing. Review of Systems Review of Systems: Yes all other systems are reviewed and are negative Constitutional: Constitutional: Denies chills and Denies fever(s) Cardiovascular: Cardiovascular: Denies chest pain and Reports dyspnea Respiratory: Respiratory: Reports cough and Reports dyspnea Gastrointestinal: Gastrointestinal: Denies abdominal pain, Denies diarrhea and Denies vomiting [facility] Medical History Multiple sclerosis HTN (hypertension) Surgical History H/O heart surgery Social History Alcohol intake: current Smoked in Last 30 Days: No Use of substances other than those prescribed or required for medical reasons: No Advance Directives: No Advance Directives Information Provided: Yes Meds Allergies Allergy/AdvReac Type Severity Reaction Status Date / Time No Known Allergies Allergy Verified 06/02/25 07:07 Active Medications: Current Medications Albuterol/Ipratropium (Albuterol/Iprat 2.5/0.5mg 3 Ml Ampul.Neb) 3 ml INHALE RQ6H WHILE AWAKE KRISTAN Home Medications ?Medication ?Instructions ?Recorded ?Confirmed ?Last Taken ?Type amlodipine 5 mg tablet 5 mg PO DAILY 06/02/25 06/02/25 06/01/25 History aspirin 81 mg tablet,delayed 81 mg PO DAILY 06/02/25 06/02/25 06/01/25 History release furosemide 20 mg tablet 20 mg PO DAILY 06/02/25 06/02/25 06/01/25 History lisinopril 10 mg tablet 10 mg PO DAILY 06/02/25 06/02/25 06/01/25 History warfarin 2 mg tablet (Jantoven) 4.5 mg PO MO@1800 06/02/25 06/02/25 06/01/25 History warfarin 4 mg tablet (Jantoven) 4 mg PO SUTUWETHFRSA@1800 06/02/25 06/02/25 06/01/25 History Physical Exam Vital Signs and Narrative: Vital Signs: Last Vital Signs Temp 98.0 F 06/02/25 10:28 Pulse 94 06/02/25 10:28 Resp 16 06/02/25 10:28 BP 134/68 06/02/25 10:28 Pulse Ox 95 06/02/25 10:28 O2 Del Method Room Air 06/02/25 10:28 BMI result Body Mass Index 39.0 Const: General: cooperative, comfortable, alert and awake Nutritional Appearance: average body habitus Orientation/consciousness: patient oriented x3 Resp: Other: rhonchi right; scattered wheeze Effort & Inspection: normal respiratory effort, able to speak in complete sentences, no respiratory distress and no use of accessory muscles Cardio: Rate: regular rate GI: Inspection: No distended Palpation (GI): Soft to palpation Neuro: General: patient oriented x3, moves all extremities and CN's II-XI intact bilaterally Results Labs 06/02/25 07:56 06/02/25 07:56 Labs: Laboratory Results - last 24 hr 06/02/25 06/02/25 06/02/25 07:56 08:01 08:44 MCV 95.0 MCH 32.0 MCHC 33.7 RDW 15.4 Plt Count 190 MPV 11.6 Immature Gran % (Auto) 0.5 H Neut % (Auto) 80.6 H Lymph % (Auto) 9.5 L [place] % (Auto) 7.1 Eos % (Auto) 1.8 Baso % (Auto) 0.5 Lymph # (Auto) 0.8 L [place] # (Auto) 0.6 Eos # (Auto) 0.1 Baso # (Auto) 0.0 Abs Immat Gran (auto) 0.04 H Absolute Neuts (auto) 6.4 Absolute Nucleated RBC 0.000 Nucleated RBC % (auto) 0.0 PT 30.6 H INR 2.7 H VBG pH 7.43 VBG pCO2 37 VBG pO2 43 VBG HCO3 25 VBG O2 Saturation 74.0 VBG Base Excess 1.5 Anion Gap 13 Estim Creat Clear Calc 65.3 Estimated GFR 58 Random Glucose 127 H Calcium 8.7 Magnesium 2.1 Total Bilirubin 0.3 AST 28 ALT 17 Alkaline Phosphatase 94 B-Natriuretic Peptide 143 H Total Protein 6.3 L Albumin 3.8 Influenza Type A (PCR) NEGATIVE Influenza Type B (PCR) NEGATIVE RSV RNA Qual (PCR) NEGATIVE SARS-CoV-2 RNA (RT-PCR) NEGATIVE Imaging Radiologist's Impressions: Impressions Chest X-Ray 06/02/25 07:16 IMPRESSION: Concerning pulmonary edema and bilateral, right greater than left pleural effusions. Concerning airspace disease, right middle lung lobe with possible atelectatic component. Recommend CT chest. Subacute to old compression fracture deformity at T12/L1 vertebra. Electronically signed by: Huy Mora MD 06/02/2025 08:[address] 06/02/25 07:52 IMPRESSION: 1. Marked elevation of the right hemidiaphragm with chronic appearing atelectasis of the right lung base. 2. There are no pleural effusions. The lungs are otherwise grossly clear. There is no overt failure or pulmonary edema present. 3. Cardiomegaly with aortic valve replacement. Probable prior CABG as well. Heavy coronary artery calcifications. 4. The trachea has a somewhat narrowed appearance, as do the mainstem bronchi, raising the possibility of tracheobronchomalacia. 5. Suspect cholelithiasis. 6. Diffuse fatty infiltration of the liver. 7. Chronic compression deformity of T12. Electronically signed by: Alban Teran MD 06/02/2025 09:26 AM EDT Assessment and Plan (1) Asthma: Status: Acute Plan This is a 70-year-old female with history of asthma, multiple sclerosis, history of hiatal hernia status post surgery who presents to the emergency department with shortness of breath admitted for the same Shortness of breath Likely due to acute asthma exacerbation with possible tracheobronchomalacia given underlying CT scan findings BNP mildly elevated at 143, but does not appear fluid overloaded at this time and no pulmonary edema on imaging (denies h/o CHF although on lasix, no echo in system) will treat with a scheduled and as needed breathing treatments and systemic steroids full RPP to rule out underlying viral infection Referral to pulmonology as outpatient Multiple sclerosis No recent flare. Not currently on any suppressive medications Mechanical aortic valve INR therapeutic at 2.7 Continue Coumadin Follow INR daily HTN Continue Norvasc, lisinopril, lasix DVT prophylaxis-Coumadin Code status-full code Quality Stroke Does the patient have a stroke diagnosis?: No VTE Prior VTE?: No VTE Risk Level:: Medical - moderate - high VTE Device Contraindication: N/A - Device Ordered VTE Drug Contraindication: N/A - Med Ordered
--- NOTE | 2025-06-02 13:16 | PHA.MEDREC ---
Addendum entered by Urszula Burgess RPh 06/02/25 13:23: Reviewed by [facility] Original Note: Pharmacy Consult ? Medication Reconciliation Pharmacy has completed the medication reconciliation.Spoke to patient, Patient confirmed jantoven 4.5mg on friday and 4 mg all other days. Patient states shes on atorvastatin 20mg daily however [employer] shows no claims since December 2023. Patient last had medications yesterday.
[2025-06-02 13:58] LABS: Chlamydia pneumoniae PCR Not Detected (Not Detect.); Coronavirus 229E PCR Not Detected (Not Detect.); Coronavirus HKU1 PCR Not Detected (Not Detect.); Coronavirus NL63 PCR Not Detected (Not Detect.); Coronavirus OC43 PCR Not Detected (Not Detect.); RSV PCR Not Detected (Not Detect.); Rhino/Enterovirus PCR Not Detected (Not Detect.)
[2025-06-02 14:16] LABS: Influenza A H1 PCR Not Detected (Not Detect.); Influenza A H1-2009 PCR Not Detected (Not Detect.); Influenza A H3 PCR Not Detected (Not Detect.); SARS-CoV-2 PCR Not Detected (Not Detect.)
--- NOTE | 2025-06-02 14:35 | PC.NURSE ---
Addendum entered by Ofelia Jimenez RN 06/02/25 14:36: Patient is a 70-year-old female with history of asthma, multiple sclerosis, history of hiatal hernia status post surgery who presents to the emergency department with shortness of breath admitted for the same. Shortness of breath Likely due to acute asthma exacerbation with possible tracheobronchomalacia given underlying CT scan findings. Alert and oriented. Lungs essentially clear bilat. Respirations even and sl labored, increased dyspnea noted upon exertion. Abdomen large soft, non-tender with positive bowel sounds. Positive pedal pulses with no edema. Original Note: Medical History Multiple sclerosis HTN (hypertension)
[2025-06-02] MEDS: Albuterol/Iprat 2.5/0.5MG 3 ML AMPUL.NEB INHALE ×2 (14:57→20:40)
[2025-06-02] MEDS: 0.9 % Sodium Chloride Flush 3 ML SYRINGE IVFLUSH ×2 (16:09→21:03)
[2025-06-03] VITALS (9 sets, daily range): BP systolic 128–167; BP diastolic 70–82; PULSE 54–89; RESP 16–18; TEMP 36.2–37; O2SAT 93–97
[2025-06-03 07:22] LABS: INTERNATIONAL NORM RATIO 1.7 (0.9-1.1); Prothrombin Time 19.8 SEC (10.9-12.4)
[2025-06-03] MEDS: Albuterol/Iprat 2.5/0.5MG 3 ML AMPUL.NEB INHALE ×3 (07:44→19:46)
[2025-06-03] MEDS: 0.9 % Sodium Chloride Flush 3 ML SYRINGE IVFLUSH ×3 (08:08→20:01)
[2025-06-03] MEDS: Aspirin Enteric Coated 81 MG TABLET.DR PO (08:15)
--- NOTE | 2025-06-03 09:33 | MHC.CM.PN ---
PT LIVES W/ HAD NO PREVIOUS SERVICES HAS OWN RIDE HOME DC PLAN HOME N/S
--- NOTE | 2025-06-03 12:02 | PM.CNPUL ---
History of Present Illness History of Present Illness Consult date: 06/03/25 Chief complaint: Asthma Narrative: Patient pulmonary consultation. This is a 70-year-old female with history of asthma, MS who presents to the emergency department with shortness of breath. She was in her usual state of health until around 05:00 this morning when she reported onset of shortness of breath and associated cough productive of clear phlegm. She denies any associated fever or chills. She denies any recent sick contacts although she does care for her 8-year-old grandson. The patient did have significant wheezing on exam and she was admitted to the hospital with asthma exacerbation. She did have a CT scan of the chest that I personally reviewed. It does appear to have a significantly elevated right hemidiaphragm which appears to be new when compared to previous chest x-rays from 2020. In addition to that there was a question of narrowing of the trachea suggesting tracheomalacia but not significant. Currently she is still having significant wheezing and does require IV steroids. We did talk about her diaphragm and the likelihood that she developed injury to the phrenic nerve during her cardiac surgery in the past. Would be reasonable to consider assessing for a paralyzed diaphragm once she patient is better this will be done as an outpatient. For now she will be treated for an asthma exacerbation will continue antibiotics to treat her for lower respiratory infection and should continue with respiratory medications. Review of Systems Review of Systems: Yes all other systems are reviewed and are negative Constitutional: Constitutional: Denies chills and Denies fever(s) Cardiovascular: Cardiovascular: Denies chest pain and Reports dyspnea Respiratory: Respiratory: Reports cough, Reports dyspnea and Reports wheezing Gastrointestinal: Gastrointestinal: Denies abdominal pain, Denies diarrhea and Denies vomiting Allergic/Immunologic: Allergic/Immunologic: Reports wheezing PMFSH Past Medical History Medical History (Updated 06/03/25 @ 12:05 by Rinku Romero MD) Elevated diaphragm Multiple sclerosis HTN (hypertension) Surgical History Surgical History H/O heart surgery Social History Social History Alcohol intake: current Patient Tobacco Use Status: Former Tobacco user service: No Meds Allergies Allergy/AdvReac Type Severity Reaction Status Date / Time No Known Allergies Allergy Verified 06/02/25 07:07 Active Medications: Current Medications Acetaminophen (Acetaminophen 325 Mg Tablet) 650 mg PO Q6H PRN PRN Reason: Pain, Mild 1-3,fever,headache Albuterol/Ipratropium (Albuterol/Iprat 2.5/0.5mg 3 Ml Ampul.Neb) 3 ml INHALE RQ6H WHILE AWAKE [facility] Last Admin: 06/03/25 07:44 Dose: 3 ml Albuterol/Ipratropium (Albuterol/Iprat 2.5/0.5mg 3 Ml Ampul.Neb) 3 ml INHALE RQ4H WHILE AWAKE PRN PRN Reason: Shortness of Breath/Wheezing Amlodipine Besylate (Amlodipine Besylate 5 Mg Tablet) 5 mg PO DAILY [facility]; Protocol Last Admin: 06/03/25 08:15 Dose: 5 mg Aspirin (Aspirin Enteric Coated 81 Mg Tablet.Dr) 81 mg PO DAILY [facility] Last Admin: 06/03/25 08:15 Dose: 81 mg Calcium Carbonate (Calcium Carbonate 750 Mg Tab.Chew) 750 mg PO Q4H PRN PRN Reason: Heartburn Furosemide (Furosemide 20 Mg Tablet) 20 mg PO DAILY [facility]; Protocol Last Admin: 06/03/25 08:15 Dose: 20 mg Lisinopril (Lisinopril 10 Mg Tablet) 10 mg PO DAILY [facility]; Protocol Last Admin: 06/03/25 08:15 Dose: 10 mg Magnesium Hydroxide (Milk Of Magnesia 30 Ml Oral.Susp) 30 ml PO DAILY PRN PRN Reason: Constipation Melatonin (Melatonin 3 Mg Tablet) 6 mg PO BEDTIME PRN PRN Reason: Insomnia Methylprednisolone Sodium Succinate (Methylprednisolone Sod Succ 40 Mg/Ml Vial) 40 mg IVPUSH Q12H [facility] Last Admin: 06/03/25 08:15 Dose: 40 mg Sodium Chloride (0.9 % Sodium Chloride Flush 3 Ml Syringe) 3 ml IVFLUSH QSHIFT [facility] Last Admin: 06/03/25 08:08 Dose: 3 ml Warfarin Sodium (Warfarin Sodium 4 Mg Tablet) 4 mg PO SUTUWETHFRSA@1800 [facility] Last Admin: 06/02/25 21:02 Dose: 4 mg Warfarin Sodium (Warfarin Sodium 0.5 Mg Halftab) 4.5 mg PO MO@1800 [facility] Home Medications ?Medication ?Instructions ?Recorded ?Confirmed ?Last Taken ?Type amlodipine 5 mg tablet 5 mg PO DAILY 06/02/25 06/02/25 06/01/25 History aspirin 81 mg tablet,delayed 81 mg PO DAILY 06/02/25 06/02/25 06/01/25 History release furosemide 20 mg tablet 20 mg PO DAILY 06/02/25 06/02/25 06/01/25 History lisinopril 10 mg tablet 10 mg PO DAILY 06/02/25 06/02/25 06/01/25 History warfarin 2 mg tablet (Jantoven) 4.5 mg PO MO@1800 06/02/25 06/02/25 06/01/25 History warfarin 4 mg tablet (Jantoven) 4 mg PO SUTUWETHFRSA@1800 06/02/25 06/02/25 06/01/25 History Physical Exam Vital Signs: Vital Signs: Last Vital Signs Temp 98.4 F 06/03/25 11:44 Pulse 84 06/03/25 11:44 Resp 16 06/03/25 11:44 BP 128/82 06/03/25 11:44 Pulse Ox 96 06/03/25 11:44 O2 Del Method Room Air 06/03/25 11:44 BMI result Body Mass Index 37.7 Const: General: comfortable, no acute distress and well developed Orientation/consciousness: patient oriented x3 HEENT: Head: Yes normocephalic and Yes atraumatic Ears: hearing grossly normal bilaterally General nose exam: Normal external nose present Eyes: General: appearance normal, both eyes and all related structures Neck: Neck: Yes normal visual inspection, Yes full ROM and No midline deformity Chest: Chest palpation & inspection: normal inspection of the chest Resp: Effort & Inspection: normal respiratory effort, Actively coughing and prolonged expiratory phase Auscultation: wheezes and diminished lung sounds Cardio: Jugular venous distension: no JVD Rate: regular rate Rhythm: regular rhythm Heart sounds: S1 normal heart sound present and S2 normal heart sound present GI: Inspection: Yes normal to inspection Palpation (GI): Soft to palpation Auscultation: normal bowel sounds : General: Yes no CVA tenderness Back/Spine/Pelvis: Back: no CVA tenderness Cervical Spine: normal cervical lordosis Thoracic/Lumbar Spine: thoracic and lumbar spine normal to inspection Skin: Other: Small hematoma right lateral aspect of thigh Neuro: General: patient oriented x3 and no focal motor deficits Results Laboratory Findings 06/02/25 07:56 06/02/25 07:56 ABG, PT/INR, D-dimer: PT/INR, D-dimer PT 19.8 SEC (10.9-12.4) H D 06/03/25 06:00 INR 1.7 (0.9-1.1) H 06/03/25 06:00 Abnormal lab findings: Abnormal Labs 06/02/25 06/02/25 06/03/25 07:56 08:44 06:00 RBC 4.00 L Immature Gran % (Auto) 0.5 H Neut % (Auto) 80.6 H Lymph % (Auto) 9.5 L Lymph # (Auto) 0.8 L Abs Immat Gran (auto) 0.04 H PT 30.6 H 19.8 H D INR 2.7 H 1.7 H Chloride 111 H BUN 24 H Random Glucose 127 H B-Natriuretic Peptide 143 H Total Protein 6.3 L Assessment and Plan (1) Asthma with exacerbation: Qualifiers: Asthma persistence: unspecified Asthma severity: moderate Qualified Code(s): J45.901 - Unspecified asthma with (acute) exacerbation Status: Acute (2) Elevated diaphragm: Status: Acute (3) Bronchitis: Status: Acute Plan Continue Solu-Medrol, p.o. prednisone tomorrow Start doxycycline Mucinex DM Continue respiratory treatments Start Blade Should be assess as an outpatient for her elevated diaphragm ?pareisis verus paralyzed Procedures Date of Service Date of Service: 06/03/25
--- NOTE | 2025-06-03 15:48 | HO.PM.IMPN ---
Subjective Subjective Date of Service: 06/03/25 Interval History: seen and examined this morning follow up for asthma exacerbation Patient still reporting dyspnea with exertion, improved at rest Constitutional Constitutional: Denies chills and Denies fever(s) Cardiovascular Cardiovascular: Reports dyspnea on exertion Respiratory Respiratory: Denies cough and Reports dyspnea on exertion Physical Exam Vital Signs: Vital Signs: Last Vital Signs Temp 98.6 F 06/03/25 15:24 Pulse 89 06/03/25 15:24 Resp 18 06/03/25 15:24 BP 144/73 H 06/03/25 15:24 Pulse Ox 93 06/03/25 15:24 O2 Del Method Room Air 06/03/25 15:24 BMI result Body Mass Index 37.7 Const: General: cooperative, comfortable, alert and awake Nutritional Appearance: average body habitus Orientation/consciousness: patient oriented x3 Resp: Other: rhonchi right; scattered wheeze Effort & Inspection: normal respiratory effort, able to speak in complete sentences, no respiratory distress and no use of accessory muscles Cardio: Rate: regular rate GI: Inspection: No distended Palpation (GI): Soft to palpation Neuro: General: patient oriented x3, moves all extremities and CN's II-XI intact bilaterally Objective Data Active Medications Acetaminophen (Acetaminophen 325 Mg Tablet) 650 mg PO Q6H PRN PRN Reason: Pain, Mild 1-3,fever,headache Albuterol/Ipratropium (Albuterol/Iprat 2.5/0.5mg 3 Ml Ampul.Neb) 3 ml INHALE RQ6H WHILE AWAKE [facility] Last Admin: 06/03/25 07:44 Dose: 3 ml Documented By: SHIRA Albuterol/Ipratropium (Albuterol/Iprat 2.5/0.5mg 3 Ml Ampul.Neb) 3 ml INHALE RQ4H WHILE AWAKE PRN PRN Reason: Shortness of Breath/Wheezing Amlodipine Besylate (Amlodipine Besylate 5 Mg Tablet) 5 mg PO DAILY [facility]; Protocol Last Admin: 06/03/25 08:15 Dose: 5 mg Documented By: FRANCES Aspirin (Aspirin Enteric Coated 81 Mg Tablet.) 81 mg PO DAILY [facility] Last Admin: 06/03/25 08:15 Dose: 81 mg Documented By: FRANCES Calcium Carbonate (Calcium Carbonate 750 Mg Tab.Chew) 750 mg PO Q4H PRN PRN Reason: Heartburn Doxycycline Monohydrate (Doxycycline Monohydrate 100 Mg Capsule) 100 mg PO Q12H [facility] Last Admin: 06/03/25 13:06 Dose: 100 mg Documented By: FRANCES Fluticasone/Vilanterol (Fluticasone/Vilanterol 200/25 Blst.W.Dev) 1 puff INHALE RDAILY [facility] Furosemide (Furosemide 20 Mg Tablet) 20 mg PO DAILY [facility]; Protocol Last Admin: 06/03/25 08:15 Dose: 20 mg Documented By: FRANCES Lisinopril (Lisinopril 10 Mg Tablet) 10 mg PO DAILY [facility]; Protocol Last Admin: 06/03/25 08:15 Dose: 10 mg Documented By: FRANCES Magnesium Hydroxide (Milk Of Magnesia 30 Ml Oral.Susp) 30 ml PO DAILY PRN PRN Reason: Constipation Melatonin (Melatonin 3 Mg Tablet) 6 mg PO BEDTIME PRN PRN Reason: Insomnia Methylprednisolone Sodium Succinate (Methylprednisolone Sod Succ 40 Mg/Ml Vial) 40 mg IVPUSH Q12H [facility] Last Admin: 06/03/25 08:15 Dose: 40 mg Documented By: FRANCES Sodium Chloride (0.9 % Sodium Chloride Flush 3 Ml Syringe) 3 ml IVFLUSH QSHIFT [facility] Last Admin: 06/03/25 08:08 Dose: 3 ml Documented By: FRANCES Warfarin Sodium (Warfarin Sodium 4 Mg Tablet) 4 mg PO SUTUWETHFRSA@1800 [facility] Last Admin: 06/02/25 21:02 Dose: 4 mg Documented By: GENET Comments: pt was in ED med not available. Just arrived to floor. Warfarin Sodium (Warfarin Sodium 0.5 Mg Halftab) 4.5 mg PO MO@1800 [facility] Labs 06/02/25 07:56 06/02/25 07:56 Labs: Laboratory Results - last 24 hr 06/03/25 06:00 Hold Purple Top SEE NOTE PT 19.8 H D INR 1.7 H Assessment and Plan (1) Asthma with exacerbation: Status: Acute (2) Elevated diaphragm: Status: Acute Plan This is a 70-year-old female with history of asthma, multiple sclerosis, history of hiatal hernia status post surgery who presents to the emergency department with shortness of breath admitted for the same Shortness of breath due to acute asthma exacerbation BNP mildly elevated at 143, but does not appear fluid overloaded at this time and no pulmonary edema on imaging (denies h/o CHF although on lasix, no echo in system) will treat with a scheduled and as needed breathing treatments and systemic steroids. Plan to transitione to p.o. prednisone in a.m. RPP negative Seen by pulmonology - recommend starting doxycycline, Breo, Mucinex. Recommends outpatient assessment for elevated diaphragm question paresis versus paralyzed Multiple sclerosis No recent flare. Not currently on any suppressive medications Mechanical aortic valve INR down to 1.7 Continue Coumadin Follow INR daily, if remains low may need bridge with lovenox HTN Continue Norvasc, lisinopril, lasix DVT prophylaxis-Coumadin Code status-full code Quality Stroke Does the patient have a stroke diagnosis?: No VTE Prior VTE?: No VTE Risk Level:: Medical - moderate - high VTE Device Contraindication: N/A - Device Ordered VTE Drug Contraindication: N/A - Med Ordered
[2025-06-03] MEDS: guaiFENesin DM 600/30 1 TAB TAB.ER.12H PO (19:58)
[2025-06-04 03:16] VITALS: BP 115/74; PULSE 69; RESP 18; TEMP 36.7; O2SAT 96
[2025-06-04 06:06] LABS: INTERNATIONAL NORM RATIO 2.2 (0.9-1.1); Prothrombin Time 25.6 SEC (10.9-12.4)
[2025-06-04 07:55] VITALS: BP 146/79; PULSE 77; RESP 14; TEMP 36.8; O2SAT 95
[2025-06-04] MEDS: guaiFENesin DM 600/30 1 TAB TAB.ER.12H PO (08:25)
[2025-06-04] MEDS: Aspirin Enteric Coated 81 MG TABLET.DR PO (08:25)
[2025-06-04] MEDS: 0.9 % Sodium Chloride Flush 3 ML SYRINGE IVFLUSH (08:25)
[2025-06-04] MEDS: Albuterol/Iprat 2.5/0.5MG 3 ML AMPUL.NEB INHALE (08:30)
[2025-06-04 08:34] VITALS: PULSE 83; RESP 18; O2SAT 98
--- NOTE | 2025-06-04 11:13 | P.DS_ITS ---
DS: Providers Provider Date of Service: 06/04/25 Date of admission: 06/02/25 11:13 Date of discharge: 06/04/25 Primary care physician: Unknown Physician Consults: 06/03/25 10:27 Consult to Pulmonology Routine Consulting Provider: [facility] Reason for consultation: dyspnea, tracheobronchomalacia Has provider been notified: No DS: Diagnosis Discharge Diagnosis (1) Asthma with exacerbation: Status: Acute (2) Elevated diaphragm: Status: Acute DS: Summary Hospital Course Hospital Course: From admission HPI: Date of Service: 06/02/25 Attending physician on admission: Med [facility] Chief Complaint: Shortness of breaths This is a 70-year-old female with history of asthma, MS who presents to the emergency department with shortness of breath. She was in her usual state of health until around 05:00 this morning when she reported onset of shortness of breath and associated cough productive of clear phlegm. She denies any associated fever or chills. She denies any recent sick contacts although she does care for her 8-year-old grandson. In the emergency department she had a CAT scan of the chest which was remarkable for chronic changes there was no overt failure or pulmonary edema and lungs were grossly clear. The trachea was somewhat narrowed raising possibility of tracheobronchomalacia. Patient was t reated with IV steroids and breathing treatments and due to persistent dyspnea the decision was made to admit her to the hospital for further treatment. In general patient reports that her asthma is fairly well controlled and has never been hospitalized for the same. She denies any dysphagia, choking episodes or difficulty swallowing. Hospital course: Pt was admitted to the hospital for SOB thought likely secondary to acute asthma exacerbation with possible underlying lower respiratory infection. CT imaging of the chest was concerning for possible tracheomalacia and elevated right diaphragm. Pt was seen and evaluated by pulmonology who who thought tracheomalacia was not significant, and thought elevated diaphragm possibly secondary to phrenic nerve injury with resultant diaphragm paralysis that would require further evaluation as an outpatient. Pt was treated with IV steroids, bronchodilator therapy, guaifenesin, and doxycycline, and was started on Breo Ellipta inhaler. Patient's hospital stay was uncomplicated and her breathing and wheezing improved. Currently pt reports feels much better and breathing at rest back to baseline, and significantly improved with ambulation. No wheezing upon auscultation. Pt be discharged home on Breo Ellipta inhaler 1 puff daily, prednisone 40 mg x3 days, and doxycycline 100 mg b.i.d. x5 days. Pt should follow up Dr. Rinku Romero and pulmonology in 1-2 weeks. Pt should resure all of her other home medications. Time Attestation Discharge Coordination Time (in mins): 35 Quality: Safe Use of Opioids Does Pt have an Active Cancer Diagnosis on the Problem List?: No Quality: Stroke Does the patient have a stroke diagnosis?: No Physical Exam Exam: Exam: General: AOx3, no acute distress Resp: CTA bilaterally CVS: S1, S2, RRR GI: +BS, NT, no distention Skin: Warm, dry Neuro: Cranial nerves II-XII grossly intact bilaterally. Motor grossly intact bilaterally Extremities: No edema Psych: Appropriate affect Vital Signs: Vital Signs: Last Vital Signs Temp 98.3 F 06/04/25 07:55 Pulse 83 06/04/25 08:34 Resp 18 06/04/25 08:34 BP 146/79 H 06/04/25 07:55 Pulse Ox 95 06/04/25 07:55 O2 Del Method Room Air 06/04/25 07:55 BMI result Body Mass Index 37.7 DS: Data Data Completed and Pending Labs on day of discharge: Laboratory Results - last 24 hr 06/04/25 05:19 PT 25.6 H D INR 2.2 H Discharge Plan Discharge Patient Disposition: Home, Self-Care Discharge Diagnosis: Acute asthma exacerbation Referrals: Rinku Romero MD [Physician, Pulmonology] - 1 Week Referral Note: F/U for possible new asthma diagnosis Physician,Unknown J [Primary Care Provider, Medical] - 1 Week Discharge Medications: New fluticasone furoate-vilanterol [Breo Ellipta] 200-25 mcg/dose Blister With Device 1 inh inhalation RDAILY Qty: 60 0RF Rx Instructions: Take one puff daily for asthma treatment prednisone 20 mg tablet 40 mg PO DAILY Qty: 6 0RF Rx Instructions: Take 2 capsules daily for the next 3 days doxycycline monohydrate 100 mg capsule 100 mg PO BID Qty: 11 0RF Rx Instructions: Take one capsule twice a day for the next 5 days, set to end on 06/09 Continued amlodipine 5 mg tablet 5 mg PO DAILY aspirin 81 mg Tablet,Delayed Release (Dr/Ec) 81 mg PO DAILY warfarin [Jantoven] 4 mg tablet 4 mg PO SUTUWETHFRSA@1800 lisinopril 10 mg tablet 10 mg PO DAILY warfarin [Jantoven] 2 mg tablet 4.5 mg PO MO@1800 furosemide 20 mg tablet 20 mg PO DAILY Discharge Orders: Discharge Order (Routine); Ordered 06/04/25 Ordered By: Gerber Mora Activity on Discharge: As tolerated Stand Alone Forms: Patient Portal Discharge page Print Language: Citizen Of [place] Care Plan Goals: See below Health Concerns: Shortness of breath Asthma exacerbation Plan of Treatment: You were admitted to the hospital for SOB likely due to asthma exacerbation with possible lower respiratory infection. You were treated with IV steroids breathing treatments, and antibiotics. Take doxycycline 100mg twice a day for the next 5 days. Complete whole course of antibiotics, set to end on 06/09 You be started on a daily inhaler, Breo Ellipta. Take 1 puff daily to prevent SOB/asthma symptoms You will be prescribed a short course of prednisone 40 mg daily x3 days Follow up outpatient with Dr. Romero in pulmonology in 1-2 weeks Your INR was subtherapeutic on 06/03 (1.7) and again on 06/04 (2.2). Continue warfarin and follow up with INR clinic to monitor. Continue all other home medications Assessment: See discharge summary Discharge Date/Time: 06/04/25 11:46
--- NOTE | 2025-06-04 11:53 | MHC.CM.PN ---
PT WILL DC HOME TODAY WITH NO SERVICE VIA PRIVATE TRANSPORT
[2025-06-04 11:55] VITALS: BP 135/84; PULSE 83; RESP 16; TEMP 36.9; O2SAT 98
== END 2025-06-04 11:46 | disposition home or self-care (01) ==
LOC: HO.ED 10:34 → HO.EDOVER 11:18 → HO.S3 19:08
PROVIDERS: Physician Assistant Medical; Admitting Provider Physician Assistant Medical; Emergency Provider Emergency Medicine Emergency Medical Services; Visit Provider Student in an Organized Health Care Education/Training Program
DX: J45.901 Unspecified asthma with (acute) exacerbation (principal); J20.9 Acute bronchitis, unspecified; J98.6 Disorders of diaphragm; R06.00 Dyspnea, unspecified; R06.02 Shortness of breath; G35 Multiple sclerosis; K21.9 Gastro-esophageal reflux disease without esophagitis; E11.9 Type 2 diabetes mellitus without complications; I11.0 Hypertensive heart disease with heart failure; I50.9 Heart failure, unspecified; R05.9 Cough, unspecified; Z03.818 Encounter for observation for suspected exposure to other biological agents ruled out; Z95.1 Presence of aortocoronary bypass graft; Z79.01 Long term (current) use of anticoagulants; Z79.899 Other long term (current) drug therapy
CPT/HCPCS: 36415; 71046; 71260; 80053; 82803; 83735; 83880; 84484; 85025; 85610; 87633; 87637; 93005; 94640; 96365; 96375; 96376; 99221; 99285; J2919; J3475; Q9967

== ENCOUNTER → 2025-06-02 07:11 | Outpatient (BNV) | payer MEDICARE, SELFPAY | PROVIDERS: Visit Provider Internal Medicine Cardiovascular Disease | DX: R94.31 Abnormal electrocardiogram [ECG] [EKG] (principal); R06.00 Dyspnea, unspecified | CPT/HCPCS: 93010 ==

== ENCOUNTER → 2025-06-02 07:43 | Outpatient (BNV) | payer MEDICARE, SELFPAY | PROVIDERS: Visit Provider Radiology Diagnostic Radiology | DX: R06.00 Dyspnea, unspecified (principal) | CPT/HCPCS: 71260 ==

== ENCOUNTER → 2025-06-02 11:13 | Outpatient (BNV) | payer MEDICARE, SELFPAY | PROVIDERS: Admitting Provider Physician Assistant Medical; Emergency Provider Emergency Medicine Emergency Medical Services; Visit Provider Hospitalist | DX: J45.901 Unspecified asthma with (acute) exacerbation (principal); J98.6 Disorders of diaphragm; J40 Bronchitis, not specified as acute or chronic | CPT/HCPCS: 99223 ==

== ENCOUNTER → 2025-06-02 11:13 | Outpatient (BNV) | payer MEDICARE, SELFPAY | PROVIDERS: Admitting Provider Physician Assistant Medical; Emergency Provider Emergency Medicine Emergency Medical Services; Visit Provider Physician Assistant Medical | DX: J45.901 Unspecified asthma with (acute) exacerbation (principal); J98.6 Disorders of diaphragm | CPT/HCPCS: 99223; 99232 ==

== ENCOUNTER 2025-09-21 14:14 | Outpatient (AMB) | payer MEDICARE, SELFPAY ==
--- NOTE | 2025-09-21 14:21 | MHC.OFFVIS ---
Vital Signs 09/21/25 14:23 Height 5 ft 4 in Weight 222 lb 2 oz BMI 38.1 BP 132/78 Blood Pressure Location Rt brachial Position Sitting Pulse 78 Pulse Source Pulse Oximeter Pulse Oximetry (%) 99 Oxygen Delivery Method Room Air Intake Visit Reasons: Dyspnea Allergies No Known Allergies Allergy (Verified 09/21/25 14:27) HPI HPI Dyspnea: Details: Imelda is a pleasant 70 year old female. former 10 pack year smoker, with underlying asthma, aortic stenosis, aortic valve repair on warfarin, CAD s/p CABG 2019, CHF, HTN, GERD and MS. She was referred by PCP after recent hospitalization related to asthma. The patient has a history of asthma that began in adulthood and was well-controlled until a recent exacerbation three months ago, which required hospitalization. During the hospitalization, she was treated with steroids, antibiotics, and albuterol, which improved her symptoms significantly. However, since discontinuing the inhaler, she reports experiencing dyspnea, though she denies coughing, wheezing, or chest tightness. Of note, patient followed closely by cardiology [facility] and patient compliant with lasix QD. 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 She has a history of smoking for approximately 15 years, smoking half a pack per day, but quit over 20 years ago. She denies any secondhand smoke exposure or occupational exposure to respiratory irritants. Denies any pertinent family history. The patient also reports postnasal drip, which may contribute to her respiratory symptoms, and she has not used any nasal sprays for management. Additionally, she has a history of mild sleep apnea, diagnosed years ago, for which she was provided a CPAP machine but found it intolerable. [facility] Medical History (Updated 09/21/25 @ 15:16 by Antonia Valerio NP) Elevated diaphragm Asthma Multiple sclerosis HTN (hypertension) Surgical History H/O heart surgery Social History Alcohol intake: current Patient Tobacco Use Status: Former Tobacco user service: No Review of Systems Const Denies chills, Denies excessive sweating, Denies fever(s), Denies headache(s) and Denies night sweats Eyes Denies dry eyes, Denies irritation and Denies itchy eyes ENT Reports Normal hearing present, Denies headache(s), Denies nasal congestion, Denies nasal discharge and Denies sore throat Card Denies chest pain, Denies chest pain at rest, Denies chest pain with activity, Denies claudication, Denies leg edema, Denies orthopnea and Denies paroxysmal nocturnal dyspnea Resp Denies chest congestion, Denies cough, Denies excessive phlegm production, Denies pain on inspiration, Denies pain with cough, Denies stridor and Denies wheezing Musc Denies myalgias Neuro Reports Normal hearing present and Denies headache(s) Endo Denies excessive sweating Joe/Lymph Denies lymphadenopathy Aller/Immun Denies itchy eyes, Denies seasonal rhinorrhea and Denies wheezing Physical Exam Vital Signs: Last Vital Signs Pulse 78 09/21/25 14:23 BP 132/78 09/21/25 14:23 Pulse Ox 99 09/21/25 14:23 Oxygen Delivery Method Room Air 09/21/25 14:23 BMI result Body Mass Index 38.1 Const General: cooperative, healthy appearing, comfortable, no acute distress, well developed and alert Nutritional Appearance: obese Orientation/consciousness: patient oriented x3 Limitations: no limitations HEENT Head: Yes normal to inspection, Yes normocephalic and Yes atraumatic Ears: hearing grossly normal bilaterally and external ears normal Eyes General: appearance normal, both eyes and all related structures Eyelids: Yes eyelids normal Sclerae: sclerae normal EOM: EOMs intact bilaterally Neck Neck: Yes normal visual inspection and Yes no lymphadenopathy Lymphatic: no lymphadenopathy noted Chest Chest palpation & inspection: normal inspection of the chest Resp Effort & Inspection: normal respiratory effort, able to speak in complete sentences, no audible wheezes, no cough, no stridor, not tachypneic, no tripod positioning and no use of accessory muscles Auscultation: clear to auscultation bilaterally Cardio Jugular venous distension: no JVD Rate: regular rate Rhythm: regular rhythm Skin Other: warm, dry General skin exam: no rashes or lesions noted Neuro General: patient oriented x3 Cranial nerves: Yes Normal hearing present Cognition (Neuro): normal cognition Gait exam (Neuro): Normal gait present Extrem General: Yes normal to inspection, Yes capillary refill normal, Yes no clubbing, cyanosis or edema and Yes no pedal edema Psych Appearance: grossly normal and well kempt Speech and movement: Normal speech and movement present and Clear speech present Affect: normal affect Attitude: cooperative Thought process: Normal thought process present Thought content: Normal thought content present Insight: Good insight present (Psych) Judgement: Good judgement present (Psych) Assessment & Plan Assessment & Plan (1) Asthma: Code(s): J45.909 - Unspecified asthma, uncomplicated Category: Medical (2) Elevated diaphragm: Code(s): J98.6 - Disorders of diaphragm Category: Medical Plan The patient will undergo a pulmonary function test to assess the severity of asthma and response to bronchodilators. A daily inhaler will be restarted, with options including Advair, depending on insurance coverage as she reported significant benefit from Breo however out of pocket cost was $500. Discussed importance of good oral hygiene to prevent thrush. The patient may benefit from a sniff test to evaluate diaphragm movement and consider surgical referral for plication, will consider in the future. The patient is advised to consider nasal sprays if symptoms persist, such as Flonase OTC. The patient is advised to monitor for symptoms of sleep apnea, such as daytime tiredness or snoring, and consider further evaluation if symptoms worsen, declines repeat testing at this time. All questions were answered and patient is in agreement of plan. Will follow up to review results or sooner if needed. Orders: Orders PFT pulmonary function test Today J45.909 - Unspecified asthma, uncomplicated Medications: New fluticasone propion-salmeterol 115-21 mcg/actuation (Advair HFA) 2 puffs inhalation Q12H 12 grams 3RF Discontinued fluticasone furoate-vilanterol 200-25 mcg/dose (Breo Ellipta) Take one puff daily for asthma treatment Discontinued Reason: Patient Completed Course 1 inh inhalation RDAILY 60 ea 0RF doxycycline monohydrate Take one capsule twice a day for the next 5 days, set to end on 06/09 Discontinued Reason: Patient Completed Course 100 mg PO BID 11 caps 0RF prednisone Take 2 capsules daily for the next 3 days Discontinued Reason: Patient Completed Course 40 mg (2 x 20 mg) PO DAILY 6 tabs 0RF Coding Level of Care Code New Pt Level 4 (40154) Diagnoses Asthma J45.909 Elevated diaphragm J98.6
[2025-09-21 14:23] VITALS: BP 132/78; PULSE 78; O2SAT 99; BMI 38.1
--- OUTSIDE RECORDS SUMMARY | 2025-09-22 02:43 | XMS_ITS | Encounter Summary ---
Author Organization [facility] Address [address] [place] [address] Phone Care Team Providers Care Lab Specialist Name Role Phone Daniel Fuentes MD Primary Care Provider [phone] Encounter Details Date Type Department Care Team (Latest Contact Info) Description 09/11/2021 Ancillary Orders [facility] [address] [place] [address] [address] Floor, [address] [place] [address] Aminta Gordon MD [id number] [place] [address] [email or web address] Atrial fibrillation, unspecified type Social History Tobacco [...] type documented in this encounter Care Teams Lab Specialist Relationship Specialty Start Date End Date Daniel Fuentes MD [address] [place] [address] PCP - General Internal Medicine 08/30/21 documented as of this encounter Additional Source Comments The information contained in this document represents components of the legal health record. It is not the complete legal health record.[facility]
--- OUTSIDE RECORDS SUMMARY | 2025-09-22 02:44 | XMS_ITS | Clinical Summary ---
Author Organization [facility] Address [address] [place] [address] Phone Care Team Providers Care Monitoring Specialist Name Role Phone Daniel Fuentes MD Primary Care Provider [phone] Social History Tobacco Use Types Packs/Day Years Used Date Smoking Tobacco: Never Assessed Education Answer Date Recorded Are you interested in more education? Not on molly e 02/28/2023 Are you concerned about learning? Not on file 02/28/2023 No 02/28/2023 No 02/28/2023 Digital Access Answer Date Recorded No 03/31/2023 No 03/31/2023 No 03/31/2023 Reliable internet access at home? Not on file 03/31/2023 Device with a working camera? Not on file Comments Unknown Sex and Gender Information Value Date Recorded Sex Assigned at Not on file Legal Sex Female 3:33 PM EDT Gender Identity Not on file Sexual Orientation Not on file Plan of Treatment Health Maintenance Due Date Last Done Comments Adult Td,Tdap Booster 1956 LIPID PANEL 1956 DEPRESSION SCREENING 1968 SMOKING Hx and SMOKELESS TOB ACCO SCREENING 01/15/1969 HEPATITIS C SCREENING 01/15/1974 MAMMOGRAM 1996 COLOGUARD 01/15/2001 COLONOSCOPY 01/15/2001 COLORECTAL CANCER SCREENING 01/15/2001 FIT TEST 01/15/2001 FOBT 01/15/2001 SIGMOIDOSCOPY 01/15/2001 VIRTUAL COLONOSCOPY 01/15/2001 PNEUMOCOCCAL VACCINES (50+ y ears) (1 of 1 - PCV) 01/15/2006 ZOSTER VACCINES (1 of 2) 01/15/2006 OSTEOPOROSIS SCREENING INITI AL (ONE-TIME) 01/15/2021 INFLUENZA VACCINE (#1) 2025 COVID-19 VACCINE ( - 2024-2 6 season) 2025 RSV VACCINE (1 - 1-dose 75+ series) 01/15/2031 HEPATITIS A VACCINES Aged Out No long er eligible based on patient's age to complete this topic HIB VACCINES Aged Out No longer eligi ble based on patient's age to complete this topic MENINGOCOCCAL VACCINES (ACWY) Aged Out No longer eligible based on patient's age to complete this topic MENINGOCOCCAL VACCINES (B) Aged Out N o longer eligible based on patient's age to complete this topic Medical Devices Not on file Insurance [place] PART A & [place] [id number] [employer] MED[employer] SUPPLEMENT MEDICARE PART A & B [employer] SUPPLEMENT MEDICARE PART A & B [employer] SUPPLEMENT MEDICARE PART A & B [employer] SUPPLEMENT MEDICARE PART A & B [employer] SUPPLEMENT MEDICARE PART A & B [employer] MED[employer] SUPPLEMENT MEDICARE PART A & B [employer] MED[employer] SUPPLEMENT MEDICARE PART A & B [facility] MEDEX SUPPLEMENT MEDICARE PART A & B [employer] MEDEX SUPPLEMENT Care Teams Monitoring Specialist Relationship Specialty Start Date End Date Daniel Fuentes MD [address] [place] [address] PCP - General Internal Medicine 08/30/21 Additional Source Comments The information contained in this document represents components of the legal health record. It is not the complete legal health record.[facility]
--- OUTSIDE RECORDS SUMMARY | 2025-09-22 02:44 | XMS_ITS | Clinical Summary ---
Author Organization [facility] Address [address] [place] [address] Care Team Providers Care Fuller Brush Worker Name Role Phone Daniel uFentes MD Primary Care Provider [phone] Allergies No known active allergies Medications Medication [...] age to complete this topic Care Teams Fuller Brush Worker Relationship Specialty Start Date End Date Daniel Fuentes MD PCP - General Internal Medicine 04/11/20
== END 2025-09-21 14:59 | disposition home or self-care (01) ==
LOC: HO.HPSW 14:14
PROVIDERS: Visit Provider Nurse Practitioner Family
DX: J45.909 Unspecified asthma, uncomplicated (principal); J98.6 Disorders of diaphragm
CPT/HCPCS: 99204

== ENCOUNTER → 2025-09-21 14:14 | Outpatient (BNVA) | payer MEDICARE, SELFPAY | PROVIDERS: Visit Provider Nurse Practitioner Family | DX: J45.909 Unspecified asthma, uncomplicated (principal); Z87.891 Personal history of nicotine dependence; Z79.01 Long term (current) use of anticoagulants; J98.6 Disorders of diaphragm | CPT/HCPCS: 99202 ==